=== PATIENT | male | born 1955 | race Caucasian/White ===

== ENCOUNTER 2024-12-30 09:13 | Outpatient (CLI) | payer MEDICARE, SELFPAY ==
--- NOTE | 2024-12-30 09:21 | ECG_ITS ---
Test Date: 2024-12-30 09:45:49 Measurements Intervals [place] Rate: 68 P: -8 PA: 159 QRS: 47 QRSD: 83 T: 54 QT: 393 QTc: 420 Interpretive Statements SINUS RHYTHM BASELINE ARTIFACT- II, III BORDERLINE ECG No previous ECG available for comparison Electronically Signed On 12-30-2024 10:33:11 CDT by Eladio Jackson D.O.
--- OUTSIDE RECORDS SUMMARY | 2024-12-30 10:11 | XMS_ITS | Clinical Summary ---
Author Organization [facility] Address [address] [place] [address] Phone Care Team Providers Care Out Of School Hours Care Worker Name Role Phone Cruz Leonard MD Primary Care Provider [phone] Allergies No known active allergies Medications acyclovir (ZOVIRAX) 800 MG Tablet TAKE 1 TABLET EVERY FOUR HOURS 0 09/30/2017 Active HYDROcodone-acet aminophen (NORCO) 7.5-325 MG Tablet TAKE 1 TABLET FOUR TIMES DAILY NEEDED 0 09/30/2017 Active gabapentin (NEURONTIN) 600 MG Tablet 1TID 0 09/30/2017 Active amitriptyline (ELAVIL) 25 MG Tablet TAKE 1 TABLET FOUR TIMES DAILY 0 09/30/2017 Active promethazine-dex tromethorphan (PROMETHAZINE-DM ) 6.25-15 MG/5ML SyrupIndications :Cough Take 5 mL by mouth every 4 hours as needed for Cough. 240 mL 11/04/2018 Active Active Problems No known active problems Family History Medical History Relation Name Comments Heart Attack Father Heart Attack Mother Relation Name Status Comments Father Mother Social History Tobacco Use Types Packs/Day Years Used Date Smoking Tobacco: Never Smokeless Tobacco: Never Tobacco Cessation:Counseling Given: No Alcohol Use Standard Drinks/Week Comments Yes 0 (1 standard drink = 0.6 oz pur e alcohol) once a year Sexually Active Control Partners Comments Yes Female Sex and Gender Information Value Date Recorded Sex Assigned at Not on file Legal Sex Male 10:55 PM CDT Gender Identity Not on file Sexual Orientation Not on file Last Filed Vital Signs Vital Sign Reading Time Taken Comments Blood Pressure 118/78 11/04/2018 9:46 AM CDT Pulse 82 11/04/2018 9:46 AM CDT Temperature 36.9 C (98.5 F) 11/04/2018 9:46 AM CDT Respiratory Rate 20 11/04/2018 9:46 AM CDT Oxygen Saturation 97% 11/04/2018 9:46 AM CDT Inhaled Oxygen Concentration - - Weight 81.6 kg (180 lb) 08/16/2018 2:20 PM CDT Height 180.3 cm (5' 11) 10/14/2017 3:27 PM CDT Body Mass Index 25.1 10/14/2017 3:27 PM CDT Plan of Treatment Health Maintenance Due Date Last Done Comments Hepatitis C Virus (HCV) Screening 1955 TdaP Immunization 1955 Cologuard 2002 Colonoscopy 2002 Colorectal Cancer Screening 2002 Immunochemical Fecal Occult Blood 2002 Pneumococcal Immunization (5 0+ years) (1 of 1 - PCV) 11/22/2007 Zoster Immunization (1 of 2) 11/22/2007 Influenza Immunization (#1) 2024 SARS-COV-2 Immunization ( - season) 2024 Respiratory Syncytial Virus (RSV) Immunization (Adult) (1 - 1-dose 75+ series) 2032 PSA Discussion Completed 10/13/2017 Hepatitis B Immunization Aged Out No longer eligible based on patient's age to complete this topic Human Papillomavirus (HPV) Immunization Aged Out No longer eligible b ased on patient's age to complete this topic Meningococcal Immunization (ACWY) Aged Out No longer eligible based on patient's age to complete this topic Rotavirus Immunization Aged Out No lo nger eligible based on patient's age to complete this topic Procedures Procedure Name Priority Date/Time Associated Diagnosis Comments PSA FREE & TOTAL Routine 10/13/2017 12:0 1 PM CDT Elevated PSA, between 10 and less than 20 ng/ml from Last 3 Months or Most Recently Relevant to Health Maintenance Results * (ABNORMAL) PSA FREE & TOTAL (10/13/2017 12:01 PM CDT) Prostatic Specific Antigen, Free 0.46 ng/mL 10/13/2017 10:31 PM CDT [facility] PSA, TOTAL (PROSTATIC SPECIFIC ANTIGEN) 4.35(H) <4.00 ng/mL 10/13/2017 10:31 PM CDT [facility] PSA, % FREE 10.6 % 10/13/2017 10:31 PM CDT [facility] Comment: PSA NG/ML FREE PSA % EST PROB CANCER % 2.6- 4.0 0-27 24 4.1-10.0 0-10 56 11-15 28 16-20 20 21-25 16 >25 8 THESE ESTIMATES VARY WITH AGE, ETHNICITY, FAMILY HISTORY AND AAYUSH RESULTS. THE DIAGNOSTIC USEFULNESS OF % FREE PSA HAS NOT BEEN ESTABLISHED IN PATIENTS WITH TOTAL PSA BELOW 2.6 NG/ML. IN MEN WITH A PSA LEVEL ABOVE 10 NG/ML, PROSTATE CANCER RISK IS DETERMINED BY TOTAL PSA ALONE. Blood specimen (specimen) Venipuncture / Unknown 10/13/2017 12:01 PM CDT 10/13/2017 12:02 PM CDT us Yuval Hightower MD CHEMISTRY ORDERABLES Final Result [facility] [address] [place] [address], from Last 3 Months or Most Recently Relevant to Health Maintenance Care Teams Out Of School Hours Care Worker Relationship Specialty Start Date End Date Cruz Leonard MD [address] [place] [address] [place] [id number] PCP - General Family Medicine 07/10/17
--- OUTSIDE RECORDS SUMMARY | 2024-12-30 10:11 | XMS_ITS | Clinical Summary ---
Author Organization [facility] Address [address] [place] [address] Care Team Providers Care Hourly Associate Name Role Phone Reginaldo Calderon MD Primary Care Provider [phone] Allergies Active Allergy Reactions Criticality Noted Date Comments Adena Derived Other (See comments),Stomach upset Low 01/23/2023 Reaction: Open Ulcers in Mouth, Stomach, Medications ondansetron ODT (ZOFRAN-ODT) 8 mg disintegrating tablet Dissolve 1 tablet oral every 4 hours as needed for nausea or vomiting. 12 tablet 06/20/19 18 Active Additional Information Patient not taking.Reported on 09/10/2024 allopurinoL (ZYLOPRIM) 300 mg tablet Take 1 tablet (300 mg total) by mouth daily Active omeprazole (PriLOSEC) 40 mg capsule Take 1 capsule (40 mg total) by mouth daily 90 capsule 01/24/20 23 Active Additional Information Patient not taking.Reported on 09/10/2024 meloxicam (MOBIC) 15 mg tablet Take 1 tablet (15 mg total) by mouth daily 30 tablet 09/11/19 25 Active diclofenac sodium (VOLTAREN) 1 % gel Apply 2 g topically 3 (three) times a day 100 g 09/11/19 25 Active Active Problems Problem Noted Date Diagnosed Date Mixed hyperlipidemia 09/10/2024 Assessment & Plan (09/10/2024 9:01 AM CDT): Lab Results Component Value Date CHOL 218 (H) 01/23/2023 Lab Results Component Value Date HDL 36 (L) 01/23/2023 Lab Results Component Value Date LDLCALC 128 01/23/2023 Lab Results Component Value Date TRIG 268 (H) 01/23/2023 No results found for: POCCHDLR No results found for: POCNONHDL No results found for: POCCHLPL Not at goal at this time Recheck lipids now The 10-year ASCVD risk score (Rissa JAMES, et al., 2019) is: 18.5% Values used to calculate the score: Age: 68 years Sex: Male Is Non- : No Diabetic: No Tobacco smoker: No Systolic Blood Pressure: 134 mmHg Is BP treated: No HDL Cholesterol: 36 mg/dL Total Cholesterol: 218 mg/dL Significantly elevated ascvd risk Recommend starting lipitor 40 mg every day 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/08/2023 Assessment & Plan (09/10/2024 8:37 AM CDT): Continue allopurinol 300 mg every day Recheck uric acid levels now Assessment & Plan (04/08/2023 11:42 AM LIVESTOCK SPECULATOR): Continue allopurinol 300 mg every day Prediabetes 04/08/2023 Assessment & Plan (09/10/2024 9:00 AM CDT): Lab Results Component Value Date HGBA1C 5.7 (H) 01/23/2023 Lab Results Component Value Date LDLCALC 128 01/23/2023 CREATININE 0.93 01/23/2023 Recheck A1c now Assessment & Plan (04/08/2023 11:42 AM LIVESTOCK SPECULATOR): Lab Results Component Value Date HGBA1C 5.7 (H) 01/23/2023 Lab Results Component Value Date LDLCALC 128 01/23/2023 CREATININE 0.93 01/23/2023 Gastroesophageal reflux disease 01/23/2023 Prostate cancer screening 01/23/2023 Assessment & Plan (09/10/2024 8:37 AM CDT): A yearly Medicare Annual Wellness Visit has been performed today. [facility] Rico is not up to date on screening tests. They are in need of AAA Screening and Colon cancer screening- these have been ordered. Patient is not up to date on needed preventative vaccinations; Is in need of Tdap/Td, Pneumonia (Prevnar-13 or Pneumovax-23), and Zoster. Discussed lifestyle modifications, diet and exercise. Routine blood work ordered/reviewed today. Yearly vision and dental examinations. Assessment & Plan (01/23/2023 3:18 PM LIVESTOCK SPECULATOR): A initial Medicare Annual Wellness Visit has been performed today. [facility] Rico is not up to date on screening tests. They are in need of Colon cancer screening- these have been ordered. Patient is not up to date on needed preventative vaccinations; Is in need of Tdap/Td, Influenza, Pneumonia (Prevnar-13 or Pneumovax-23), and Zoster. These have been ordered/arranged unless otherwise indicated. Resolved Problems Problem Noted Date Diagnosed Date Resolved Date Bronchitis 10/13/2014 09/10/2024 Overview (06/09/2016): Bronchitis Encounters Date Type Department Care Team Description 12/23/2024 12:30 PM CDT - 12/23/2024 11:59 [place] [address] Impingement syndrome of right shoulder Discharge Disposition: Discharge to home or self care from Last 3 Months Surgical History Surgery Date Site/Laterality Comments OTHER SURGICAL HISTORY nasal surgery: surgery Medical History Medical History Date Comments Hx Other Medical 1986 nasal surgery Hx Other Medical 1967 Rheumatic fever -hx of-prior hx of murmur Hx Other Medical ixanrlpeo-[id number] a month, mild to severe Hx Other Medical 03/2010 Viral Infection Gastroesophageal reflux disease GERD Family History Medical History Relation Name Comments Cirrhosis Brother 1 Kelton Cirrhosis; Caus e of : Cirrhosis Depression Brother 1 Kelton Depression; Hypertension Brother 1 Kelton Hypertension; COPD Father COPD; Diabetes Father Diabetes mellit us; Hypertension Father Hypertension; Coronary artery disease Mother Venita nary artery disease; Hypertension Mother Hypertension; Tuberculosis Other Tuberculosis; Alzheimer's disease Sister Yaneth Alzheime r's Disease; Cause of : Alzheimer's Disease Depression Sister Yaneth Depression; Relation Name Status Comments Brother 1 Kelton Alive Brother 2 Kelton Alive Father Alive Mother Other Sister Yaneth Alive Social History Tobacco Use Types Packs/Day Years Used Date Smoking Tobacco: Never Smokeless Tobacco: Never Tobacco Cessation:Counseling Given: Not Answered Alcohol Use Standard Drinks/Week Comments No 0 (1 standard drink = 0.6 oz pur e alcohol) AUDIT-C Answer Date Recorded Q1: How often do you have a drink containing alcohol? Never 09/10/2024 Q2: How many drinks containi ng alcohol do you have on a typical day when you are drinking? Patient does not drink Q3: How often do you have si x or more drinks on one occasion? Never 09/10/2024 PHQ-2 Answer Date Recorded PHQ-2 Total Score (If total score is 3 or more points, staff should administer the PHQ-9) 0 09/10/2024 Sex and Gender Information Value Date Recorded Sex Assigned at Not on file Legal Sex Male 6:39 PM LIVESTOCK SPECULATOR Gender Identity Male 04/04/2023 9:30 AM LIVESTOCK SPECULATOR Sexual Orientation Not on file Obstetrics History Last Filed Vital Signs Vital Sign Reading Time Taken Comments Blood Pressure 134/86 09/10/2024 8:35 AM CDT Pulse 78 09/10/2024 8:35 AM CDT Temperature 37.7 C (99.9 F) 06/19/2017 1:49 PM CDT Respiratory Rate 16 09/10/2024 8:35 AM CDT Oxygen Saturation 95% 09/10/2024 8:35 AM CDT Inhaled Oxygen Concentration - - Weight 85.7 kg (189 lb) 09/10/2024 8:35 AM CDT Height 182.9 cm (6' 0.01) 09/10/2024 8:35 AM CD T Body Mass Index 25.63 09/10/2024 8:35 AM CDT Plan of Treatment Health Maintenance Due Date Last Done Comments Colon Cancer Screening-Colonoscopy 1955 DTaP/Tdap/Td Vaccine (1 - Tdap) 1968 Hepatitis B Screening 11/22/1975 Pneumococcal vaccine 65+ (1 of 1 - PCV) 11/22/2007 Zoster Vaccine (1 of 2) 11/22/2007 Influenza Vaccine (#1) 2024 Depression Screening 09/10/2025 09/10/2024, 04/08/2023, 01/23/2023 Fall Risk Assessment 09/10/2025 09/10/2024, 04/08/2023, 01/23/2023 Well Visit 65+ 09/10/2025 09/10/2024, 01/23/2023 Prostate Cancer Screening-PSA 09/10/2026 09/10/2024, 01/23/2023 Hepatitis C Screening Completed 01/23/2023 Procedures Procedure Name Priority Date/Time Associated Diagnosis Comments MRI SHOULDER RIGHT WO CONTRAST Schedule Routine, Read Routine (OP Routine) 12/23/2024 1:01 PM CDT Impingement syndrome of right shoulder PSA SCREEN Routine 09/10/2024 9:33 AM CDT Prostate cancer screening HEPATITIS C ANTIBODY Routine 01/23/2023 3:30 PM LIVESTOCK SPECULATOR Preventative health care from Last 3 Months or Most Recently Relevant to Health Maintenance Results * MRI Shoulder Right WO Contrast (12/23/2024 1:01 PM CDT) Anatomical Region Laterality Modality Upper Extremities Right Magnetic Reson ance 12/23/2024 1:19 PM CDT Impressions 12/23/2024 1:19 PM CDT 1. Thickened and edematous right inferior glenohumeral joint capsule, which can be associated with adhesive capsulitis. 2. Mild right supraspinatus and infraspinatus cuff tendinosis with a small superimposed 8 x 9 mm partial-thickness articular sided tear of the anterior supraspinatus footprint. 3. Moderate acromioclavicular joint osteoarthritis with mild subacromial subdeltoid bursitis. 4. Mild right glenohumeral chondrosis with a small effusion. Electronically signed by: Evan Brown M.D. Narrative 12/23/2024 1:19 PM CDT EXAMINATION: 1. MRI right shoulder without contrast HISTORY: Right shoulder pain for months. FINDINGS: Comparison radiographs 09/19/2024 have been reviewed. Multiplanar multisequence MR examination of the right shoulder was performed with a local coil. There is a type 2 acromion. The coracoacromial ligament is thin. There is moderate acromioclavicular joint osteoarthritis. Small acromioclavicular joint cyst is noted. There is mild subacromial subdeltoid bursitis. Moderate to severe chronic atrophy of the teres minor. The remaining cuff muscle bulk is within normal limits. Mild insertional subscapularis tendinosis. The biceps tendon remains within the bicipital groove. Mild intra-articular biceps tendinosis. Mild supraspinatus and infraspinatus cuff tendinosis. Superimposed 8 x 9 mm partial-thickness articular sided tear at the anterior footprint. On this non arthrographic evaluation, the superior labrum and bicipital anchor appear intact. The labrum below the equator is normal. Small shoulder effusion. The inferior glenohumeral joint capsule is thickened and edematous with pericapsular edema. No loose bodies are identified. Mild glenohumeral chondrosis. Procedure Note Evan Brown MD - 12/23/2024 EXAMINATION: 1. MRI right shoulder without contrast HISTORY: Right shoulder pain for months. FINDINGS: Comparison radiographs 09/19/2024 have been reviewed. Multiplanar multisequence MR examination of the right shoulder was performed with a local coil. There is a type 2 acromion. The coracoacromial ligament is thin. There is moderate acromioclavicular joint osteoarthritis. Small acromioclavicular joint cyst is noted. There is mild subacromial subdeltoid bursitis. Moderate to severe chronic atrophy of the teres minor. The remaining cuff muscle bulk is within normal limits. Mild insertional subscapularis tendinosis. The biceps tendon remains within the bicipital groove. Mild intra-articular biceps tendinosis. Mild supraspinatus and infraspinatus cuff tendinosis. Superimposed 8 x 9 mm partial-thickness articular sided tear at the anterior footprint. On this non arthrographic evaluation, the superior labrum and bicipital anchor appear intact. The labrum below the equator is normal. Small shoulder effusion. The inferior glenohumeral joint capsule is thickened and edematous with pericapsular edema. No loose bodies are identified. Mild glenohumeral chondrosis. IMPRESSION: 1. Thickened and edematous right inferior glenohumeral joint capsule, which can be associated with adhesive capsulitis. 2. Mild right supraspinatus and infraspinatus cuff tendinosis with a small superimposed 8 x 9 mm partial-thickness articular sided tear of the anterior supraspinatus footprint. 3. Moderate acromioclavicular joint osteoarthritis with mild subacromial subdeltoid bursitis. 4. Mild right glenohumeral chondrosis with a small effusion. Electronically signed by: Evan Brown M.D. us Jamie Sigala MD IMG MRI PROCEDURES Final R esult * PSA screen (09/10/2024 9:33 AM CDT) PSA-Total 1.88 <=5.40 ng/mL Comment: Interpretive Data AGE SEX REFERENCE INTERVAL 0 minutes-150 years Female None 0 minutes-49 years Male None 50-59 years Male 0-3.90 60-69 years Male 0-5.40 70-79 years Male 0-6.20 80-150 years Male 0-6.20 The Aminata PSA Total assay procedure was used. Results from different manufacturers or methods may not be comparable. Serial testing should be performed using the same method. Current interpretive data last revised 21. Blood 09/10/2024 9:33 AM CDT 09/10/2024 9:45 AM CDT us Reginaldo Calderon MD LAB BLOOD ORDERABLES Final Resul t [facility] [place] [address] * Hepatitis C antibody Blood (01/23/2023 3:30 PM LIVESTOCK SPECULATOR) Hep C Ab Nonreactive Nonreactive [facility] Comment: Interpretive Data Nonreactive: Antibodies to HCV not detected. Does NOT exclude the possibility of recent exposure to HCV. Equivocal: Equivocal for HCV antibodies. Supplemental molecular testing will be automatically performed to determine infection status in accordance with current CDC screening recommendations. Reactive: Positive for HCV antibodies. This may represent current or past HCV infection. Supplemental molecular testing will be automatically performed to determine current infection status in accordance with current CDC screening recommendations. Interpretive data was last revised on 2019. Testing performed by: [facility], [address] [place]., [address] Blood 01/23/2023 3:30 PM LIVESTOCK SPECULATOR 01/23/2023 6:28 PM LIVESTOCK SPECULATOR us Reginaldo Calderon MD LAB MICROBIOLOGY - GENERAL ORDER [place] Final Result [facility] ([place]) [address] [facility] Department [place] [address] from Last 3 Months or Most Recently Relevant to Health Maintenance Insurance MEDICARE [facility] * Guarantor: SHONNA RICO Account Type Relation to Patient Date of Phone Billing Address Personal/Family [address] [place] [address] Care Teams Hourly Associate Relationship Specialty Start Date End Date Reginaldo Calderon MD [address] [facility] [address] [place] [address] [place] [id number] PCP - General Family Medicine 01/23/23
== END 2024-12-30 09:14 | disposition home or self-care (01) ==
LOC: ANHCARD 09:17
PROVIDERS: Visit Provider Orthopaedic Surgery
DX: E78.2 Mixed hyperlipidemia (principal); Z01.818 Encounter for other preprocedural examination; R94.31 Abnormal electrocardiogram [ECG] [EKG]
CPT/HCPCS: 93005